=== PATIENT | female | born 1985 | race Hispanic/Latino ===

== ENCOUNTER 2016-12-22 01:26 | Emergency (ER) | payer MEDICAID ==
[2016-12-22] MEDS ORDERED: TYLENOL ONE (01:35)
[2016-12-22] MEDS ORDERED: TYLENOL PO ONE (01:40)
[2016-12-22 02:41] LABS: Basophils % (Auto) 0.4 % (0.0-1.8); Eosinophils % (Auto) 0.9 % (0.0-4.3); Hematocrit 38.1 % (30.3-42.9); Hemoglobin 13.1 gm/dl (10.1-14.3); Mean Corpuscular HGB Conc 34 % (30-34); Mean Corpuscular Hemoglobin 32 pg (28-32); Mean Corpuscular Volume 93 fl (79-97); Platelet Count 180 K/mm3 (140-440); Red Cell Distribution Width 12.5 % (13.2-15.2); White Blood Count 11.1 K/mm3 (4.5-11.0)
[2016-12-22 03:00] LABS: Alanine Aminotransferase 9 units/L (7-56); Albumin 4.4 g/dL (3.9-5); Albumin/Globulin Ratio 1.3 %; Alkaline Phosphatase 41 units/L (35-129); Anion Gap 20 mmol/L; Blood Urea Nitrogen 10 mg/dL (7-17); Calcium 9.5 mg/dL (8.4-10.2); Carbon Dioxide 20 mmol/L (22-30); Chloride 99.5 mmol/L (98-107); Glucose 97 mg/dL (65-100); Lipase 38 units/L (13-60); Potassium 3.7 mmol/L (3.6-5.0); Sodium 136 mmol/L (137-145); Total Protein 7.7 g/dL (6.3-8.2)
[2016-12-22 04:05] LABS: Bilirubin,Urine NEG (Negative); Blood,Urine MOD (Negative); Ketones,Urine NEG (Negative); Leukocyte Esterase,Urine NEG (Negative); Mucus,Urine FEW /HPF; Nitrite,Urine NEG (Negative); Protein,Urine <15 mg/dL mg/dL (Negative); Urobilinogen,Urine < 2.0 mg/dL (<2.0)
--- NOTE | 2016-12-22 04:10 | Ultrasound Report ---
FINAL REPORT PROCEDURE: Ultrasound obstetrical transabdominal and transvaginal TECHNIQUE: Real-time transabdominal and transvaginal sonography of the uterus, placenta, amniotic fluid, adnexa, and fetus was performed with image documentation. Measurements were obtained to determine age/size. M-mode Doppler was used to document heartbeat. CPT 64130 and 71170 HISTORY: vaginal bleed COMPARISON: No prior studies are available for comparison. FINDINGS: ADDITIONAL GESTATION: None. CRL: 61 mm, which corresponds to a gestational age of: 12 weeks, 4 days. Yolk Sac: Normal. Embryonic Cardiac Activity: 156 beats per minute Gestational Sac: There is a subchorionic bleed this measures up to 3 centimeters. Amniotic fluid: Normal. Cervix: Normal. Right Ovary: Normal. Left Ovary: Normal. Estimated delivery date: 07/02/2017 Uterus and adnexa: Normal. IMPRESSION: 1. Single live intrauterine gestation at approximately 12 weeks, 4 days. 2. EDC by US 07/02/2017 3. Moderate-sized subchorionic bleed measuring up to 3 centimeters.
--- NOTE | 2016-12-22 04:10 | Ultrasound Report ---
FINAL REPORT PROCEDURE: US OB TRANSVAGINAL TECHNIQUE: Real-time transabdominal and transvaginal sonography of the uterus, placenta, amniotic fluid, adnexa, and fetus was performed with image documentation. Measurements were obtained to determine age/size. M-mode Doppler was used to document heartbeat. CPT 46223 and 62674 HISTORY: vaginal bleed COMPARISON: No prior studies are available for comparison. FINDINGS: ADDITIONAL GESTATION: None. CRL: 61 mm, which corresponds to a gestational age of: 12 weeks, 4 days. Yolk Sac: Normal. Embryonic Cardiac Activity: 156 beats per minute Gestational Sac: There is a subchorionic bleed this measures up to 3 centimeters. Amniotic fluid: Normal. Cervix: Normal. Right Ovary: Normal. Left Ovary: Normal. Estimated delivery date: 07/02/2017 Uterus and adnexa: Normal. IMPRESSION: 1. Single live intrauterine gestation at approximately 12 weeks, 4 days. 2. EDC by US 07/02/2017 3. Moderate-sized subchorionic bleed measuring up to 3 centimeters.
[2016-12-22 10:18] VITALS: BP 125/80
--- NOTE | 2016-12-22 12:47 | Emergency Department Report ---
ED HPI - General Chief complaint: Vaginal Bleeding Stated complaint: VAGINAL BLEEDING/14WKS PREG Time Seen by Provider: 12/22/16 12:25 Source: patient Mode of arrival: Ambulatory Limitations: No Limitations - History of Present Illness Complaint: vaginal bleeding -: Gradual Location: other Radiation: none Severity: moderate Severity scale (0 -10): 3 Quality: cramping, aching Consistency: intermittent, now resolved Improves with: none Worsens with: none Associated symptoms: vaginal bleeding, weakness. denies: nausea/vomiting, vaginal discharge, abdominal pain, headache, vision changes, malaise, dysparuenia, shortness of breath, syncope Vaginal bleeding: light :: Yes Number of weeks : 14 OB History - Current : no complications OB History - Previous Pregnancies: no complications Pre-grady care: followed by OB, previous ultrasound confi - Related Data : 3 Para: 3 Home Medications Medication Instructions Recorded Confirmed Last Taken Acetaminophen [Tylenol] 1,000 mg PO Q6HR 08/15/13 12/22/16 08/18/13 Vit-Fe Fumar-FA [ 1 tab PO DAILY 08/15/13 12/22/16 08/18/13 Vitamin] Allergies Allergy/AdvReac Type Severity Reaction Status Date / Time No Known Allergies Allergy Verified 05/30/13 16:50 ED Review of Systems ROS: Stated complaint: VAGINAL BLEEDING/14WKS PREG Other details as noted in HPI Comment: All other systems reviewed and negative ED Past Medical Hx - Past Medical History Previous Medical History?: Yes Hx Hypertension: No Hx Congestive Heart Failure: No Hx Diabetes: No Hx Deep Vein Thrombosis: No Hx Renal Disease: No Hx Sickle Cell Disease: No Hx Headaches / Migraines: Yes Hx Seizures: No Hx Asthma: No Hx COPD: No Hx HIV: No - Surgical History Past Surgical History?: Yes Additional Surgical History: Hemorrhoids. Kidney stone lithography. Left femur - Social History Smoking Status: Never Smoker Substance Use Type: None - Medications Home Medications: Home Medications Medication Instructions Recorded Confirmed Last Taken Type Acetaminophen [Tylenol] 1,000 mg PO Q6HR 08/15/13 12/22/16 08/18/13 History Vit-Fe Fumar-FA [ 1 tab PO DAILY 08/15/13 12/22/16 08/18/13 History Vitamin] ED Physical Exam - General Limitations: No Limitations General appearance: alert, in no apparent distress - Head Head exam: Present: atraumatic, normocephalic - Eye Eye exam: Present: normal appearance - ENT ENT exam: Present: mucous membranes moist - Neck Neck exam: Present: normal inspection - Respiratory Respiratory exam: Present: normal lung sounds bilaterally. Absent: respiratory distress - Cardiovascular Cardiovascular Exam: Present: regular rate, normal rhythm. Absent: systolic murmur, diastolic murmur, rubs, gallop - GI/Abdominal GI/Abdominal exam: Present: soft, normal bowel sounds. Absent: distended, tenderness, guarding, rebound - Extremities Exam Extremities exam: Present: normal inspection - Back Exam Back exam: Present: normal inspection - Neurological Exam Neurological exam: Present: alert, oriented X3 - Psychiatric Psychiatric exam: Present: normal affect, normal mood - Skin Skin exam: Present: warm, dry, intact, normal color. Absent: rash ED Course Vital Signs 12/22/16 12/22/16 12/22/16 01:34 10:05 12:11 Temperature 97.8 F 98.0 F Pulse Rate 93 H 82 97 H Respiratory 16 16 22 Rate Blood Pressure 125/80 Blood Pressure 116/73 [Right] O2 Sat by Pulse 100 100 100 Oximetry 12/22/16 12:21 Temperature Pulse Rate Respiratory 22 Rate Blood Pressure Blood Pressure [Right] O2 Sat by Pulse 100 Oximetry ED Medical Decision Making - Lab Data Result diagrams: 12/22/16 02:13 12/22/16 02:13 - Radiology Data Radiology results: report reviewed, image reviewed - Medical Decision Making patient doing well, no bleeding at this time, offered ivf but she is tired and wants to go home, she has appointment with OBGYN tomorrow at 10 am,will dc and follow up. Critical care attestation.: If time is entered above; I have spent that time in minutes in the direct care of this critically ill patient, excluding procedure time. ED Disposition Clinical Impression: Threatened Disposition: DC-01 TO HOME OR SELFCARE Is pt being admited?: No Does the pt Need Aspirin: No Condition: Good Instructions: Threatened Miscarriage (ED) Referrals: LYN CHEW CNM [Primary Care Provider] - 3-5 Days Time of Disposition: 12:47
== END 2016-12-22 12:55 | disposition home or self-care (01) ==
LOC: ED 01:26
DX: O20.0 Threatened abortion (principal); Z3A.14 14 weeks gestation of pregnancy
CPT/HCPCS: 36415; 76801; 76817; 80053; 81001; 83690; 84702; 84703; 85025; 86850; 86900; 86901; 99284

== ENCOUNTER 2017-06-14 13:25 | Outpatient (CLI) | payer MEDICAID ==
[2017-06-14 15:51] VITALS: BP 117/64
== END 2017-06-14 14:31 | disposition home or self-care (01) ==
LOC: TRG 13:25
PROVIDERS: ATTEND Obstetrics & Gynecology
DX: O47.1 False labor at or after 37 completed weeks of gestation (principal); Z3A.38 38 weeks gestation of pregnancy

== ENCOUNTER 2017-06-18 18:53 | Inpatient (IN) | payer MEDICAID ==
--- NOTE | 2017-06-18 19:48 | History and Physical Report ---
History of Present Illness Date of examination: 06/18/17 Date of admission: 06/18/2017 Chief complaint: 31 yo [id number] (first baby of SIDS) admitted in labor at term by nurse check was said to be 3cm dilated, cont q2-3 min. By my exam she has a big floppy multip cervix that is sl more than fingertip but she is having very regular and painful contractions and head is very well applied to cervix. 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 Weight (lb): 137 BMI: 23.6 BP: 128/ 60 mm Hg Ur. Protein: negative Ur. Glucose: negative Chief Complaint/Current Status: pt presents for missed period, c/o being really sick......tmackey Menstrual History Regularity: regular Menses every: 28 days Duration: 5 LMP: 09/20/2016 LMP reliability: unknown LMP character: normal test type: urine test Date: 11/08/2016 BC at conception: other Planned ? no EDC Calculations LMP: 06/27/2017 EDC Confirmation: 06/27/2017 Gestational Age: 7 weeks LMP: 06/27/2017 EDC Confirmation: 06/27/2017 Past History : 4 Term Births: 3 Living Children: 2 Para: 3 Aborta: 1 Elect. Ab: 1 # 1 Delivery date: 05/2006 Weeks Gestation: 41 Delivery type: Delivery location: [facility] [place] Infant Sex: Male weight: 8-0 Name: Teodoro Comments: Passed 07/09/06 SIDS # 2 Delivery date: 07/2007 Weeks Gestation: 38 Delivery type: Anesthesia type: epidural Delivery location: [facility] Sex: Female weight: 7-0 Name: Latrice # 3 Delivery date: 2011 Weeks Gestation: 5 Delivery type: EAB Comments: severe post procedure bleeding # 4 Delivery date: 08/19/2013 Weeks Gestation: 40 Delivery type: Vaginal Anesthesia type: epidural Delivery location: [facility] Infant Sex: female weight: 6.31 Comments: none Past Medical History Social Hx: Patient is single pt takes meds for anxiety and depression is being followed by professional Active Medications: CYPROHEPTADINE 4MG () one po BID for rhinitis PROMETHAZINE HCL 12.5 MG ORAL TABLET (PROMETHAZINE HCL) 1 po qHS prn nausea ZOFRAN ODT 8 MG ORAL TABLET DISINTEGRATING (ONDANSETRON) 1 po q12hrs prn daytime dosing only SUMATRIPTIN () TUMS () TYLENOL () MECLIZINE () Current Allergies: * CLINDAMYCIN (Critical) Past Medical History: Reviewed history from 12/25/2012 and no changes required: Kidney Stone Anxiety Migraines Past Surgical History: Reviewed history from 12/25/2012 and no changes required: positive Hemorrhoidectomy Lithotripsy Past Medical History Abnormal PAP: negative AFTAB Exposure: negative Infertility: negative Uterine Anomaly: negative Uterine Surgery (not C/S): negative Other Gynecologic Problems: negative Social Hx: Patient is single pt takes meds for anxiety and depression is being followed by professional Infection History Hx of STD: chlamydia HIV Risk Eval: low risk Hepatitis B Risk Eval: low risk Personal hx. of genital herpes: no Partner hx. of genital herpes: no Rash, Viral, or Febrile illness since last LMP? no Varicella/Chicken Pox Status: Previous Disease Genetic History Congenital Heart Defect: Mom: no Dad: no Fabián Disease: Mom: no Dad: no Thalassemia Mom: no Dad: no Neural Tube Defect Mom: no Dad: no Down's Syndrome Mom: no Dad: no Jesus-Sachs Mom: no Dad: no Sickle Cell Disease/Trait Mom: no Dad: no Hemophilia Mom: no Dad: no Muscular Dystrophy Mom: no Dad: no Cystic Fibrosis Mom: no Dad: no Bath Chorea Mom: no Dad: no Mental Retardation Mom: no Dad: no Fragile X Mom: no Dad: no Other Genetic/Chromosomal Disorder Mom: no Dad: no Child w/other defect Mom: no Dad: no Enviromental Exposures Xray Exposure: yes Medication, drug, or alcohol use since LMP: yes Chemical/Other Exposure: yes Exposure to Cat Liter: yes Hx of Parvovirus (Fifth Disease): yes Occupational Exposure to Children: none Current Allergies (reviewed today): * CLINDAMYCIN (Critical) Laboratory Results Routine Urinalysis Leukocytes: negative Nitrite: negative Urobilinogen: negative Protein: negative Blood: negative Ketone: negative Bilirubin: negative Glucose: negative Urine HCG: positive Review of Systems General Denies fever, chills, sweats, anorexia, fatigue, weakness, malaise, weight loss and sleep disorder. Complains of nausea and vomiting. Denies headache, swelling of legs, abdominal pain, vaginal discharge, vaginal bleeding and contractions. rx called in Denies vaginal discharge, incontinence, dysuria, hematuria, urinary frequency, amenorrhea, menorrhagia, abnormal vaginal bleeding, pelvic pain, genital sores, decreased libido, painful periods, painful sex, urinary urgency, hot flashes, vaginal dryness, vaginal itching and vaginal odor. CV Denies chest pains, palpitations, syncope, dyspnea on exertion, orthopnea, PND and peripheral edema. Resp Denies cough, dyspnea at rest, excessive sputum, hemoptysis, wheezing and pleurisy. GI Denies nausea, vomiting, diarrhea, constipation, change in bowel habits, abdominal pain, melena, hematochezia, jaundice, gas/bloating, indigestion/ heartburn, dysphagia and odynophagia. Endo Denies cold intolerance, heat intolerance, polydipsia, polyphagia, polyuria and unusual weight change. Breast Denies left breast lump, right breast lump, nipple discharge, bloody discharge from nipple, breast pain, abnormal mammogram and breast enlargement. MS Denies back pain, joint pain, joint swelling, muscle cramps, muscle weakness, stiffness, arthritis, sciatica, restless legs, leg pain at night and leg pain with exertion. Derm Denies rash, itching, dryness and suspicious lesions. Neuro Denies paralysis, paresthesias, headache, seizures, tremors, vertigo, transient blindness, frequent falls, frequent headaches and difficulty walking. Psych Denies depression, anxiety, irritability and mood swings. Eyes Denies blurring, diplopia, irritation, discharge, vision loss, eye pain and photophobia. ENT Denies earache, ear discharge, tinnitus, decreased hearing, nasal congestion, nosebleeds, sore throat and hoarseness. Allergy Denies urticaria, allergic rash, hay fever and recurrent infections. Heme Denies abnormal bruising, bleeding and enlarged lymph nodes. Flowsheet View for Follow-up Visit Estimated weeks of gestation: 7 Weight: 137 Blood pressure: 128 / 60 Urine protein: negative Urine glucose: negative Past History - Obstetrical History : 4 Medications and Allergies Allergies Allergy/AdvReac Type Severity Reaction Status Date / Time No Known Allergies Allergy Verified 05/30/13 16:50 Home Medications Medication Instructions Recorded Confirmed Last Taken Type Acetaminophen [Tylenol] 1,000 mg PO Q6HR 08/15/13 06/14/17 08/18/13 History Vit-Fe Fumar-FA [ 1 tab PO DAILY 08/15/13 06/14/17 08/18/13 History Vitamin] - Vital Signs Vital signs: Vital Signs Temp Pulse Resp BP 99.1 F 96 H 18 132/76 06/18/17 19:08 06/18/17 19:08 06/18/17 19:08 06/18/17 19:08 Temp Pulse Resp BP Pulse Ox 99.1 F 96 H 18 132/76 06/18/17 19:08 06/18/17 19:08 06/18/17 19:08 06/18/17 19:08 Results Result Diagrams: 06/18/17 21:00 All other labs normal. Assessment and Plan - Patient Problems (1) Active labor at term Current Visit: Yes Status: Acute Plan to address problem: anticipate vag del
[2017-06-18] MEDS ORDERED: MINERAL OIL PO PRN (19:53)
[2017-06-18] MEDS ORDERED: BRETHINE SUB-Q PRN (19:53)
[2017-06-18] MEDS ORDERED: SUBLIMAZE IV PRN (19:53)
[2017-06-18] MEDS ORDERED: ePHEDrine SULFATE IV PRN ×2 (19:53→22:36)
[2017-06-18] MEDS ORDERED: XYLOCAINE 2% INFILTRATI ONE (19:53)
[2017-06-18] MEDS ORDERED: BRETHINE IVP PRN (19:53)
[2017-06-18] MEDS ORDERED: STADOL IV PRN (19:53)
[2017-06-18] MEDS ORDERED: PITOCin/NS 20 UNIT/1000ML DRIP 20 UNITS/1,000 ML BAG IV SCH (20:00)
[2017-06-18] MEDS ORDERED: PITOCin/NS 30 UNIT/500ML 30 UNITS/500 ML BAG IV SCH (20:00)
[2017-06-18] MEDS: LACTATED RINGERS 1,000 ML IV SCH ×2 (21:15→22:57)
[2017-06-18] MEDS: PITOCin/NS 30 UNIT/500ML 30 UNITS/500 ML BAG IV SCH ×2 (21:15→23:44)
[2017-06-18 21:32] LABS: Hematocrit 33.7 % (30.3-42.9); Hemoglobin 11.8 gm/dl (10.1-14.3); Mean Corpuscular HGB Conc 35 % (30-34); Mean Corpuscular Hemoglobin 32 pg (28-32); Mean Corpuscular Volume 93 fl (79-97); Platelet Count 154 K/mm3 (140-440); Red Blood Count 3.64 M/mm3 (3.65-5.03); White Blood Count 9.9 K/mm3 (4.5-11.0)
[2017-06-18] MEDS ORDERED: NARCAN 2 MG/2 ML IV PRN (22:36)
--- NOTE | 2017-06-18 22:36 | Anesthesia Consultation ---
Anesthesia Consult and Med Hx Date of service: 06/18/17 - Airway Anesthetic Teeth Evaluation: Good ROM Head & Neck: Adequate Mental/Hyoid Distance: Adequate Mallampati Class: Class II Intubation Access Assessment: Probably Good - Pulmonary Exam CTA: Yes - Cardiac Exam Cardiac Exam: RRR - Pre-Operative Health Status ASA Pre-Surgery Classification: ASA2 Proposed Anesthetic Plan: Epidural - Pulmonary Hx Asthma: No COPD: No Hx Pneumonia: No - Cardiovascular System Hx Hypertension: No - Central Nervous System Hx Seizures: No Hx Psychiatric Problems: No - Endocrine Hx Renal Disease: No Hx End Stage Renal Disease: No Hx Hypothyroidism: No Hx Hyperthyroidism: No - Hematic Hx Anemia: No Hx Sickle Cell Disease: No - Other Systems Hx Alcohol Use: No
[2017-06-18] MEDS: fentaNYL-BUPIV 2 MCG/ML-0.125% 200 MCG/100 ML BAG EPIDURAL SCH (23:00)
[2017-06-19] MEDS: ZOFRAN IV PRN ×2 (02:09→07:55)
--- NOTE | 2017-06-19 02:34 | Event Note ---
Date: 06/19/17 Rechecked, Pit at 14 and now 3-4 cm, -3, 50% AROM clear
--- NOTE | 2017-06-19 05:57 | Progress Note ---
Assessment and Plan L2 labor augmentation after SROM yesterday evening, not in labor. Pitocin @ 26mu SVE minimal chg Internal monitors placed Encouraged position chg frequently. Ctx Q 1-2 will decrease pitocin and allow uterus to rest and reassess in 1-2 hours. Subjective - Subjective Date of service: 06/19/17 (c/o pain with epidural) Principal diagnosis: IUP 38w6d with PROM Patient reports: movement normal Objective - Vital Signs Vital Signs: Vital Signs - 12hr 06/18/17 06/18/17 06/18/17 19:08 20:18 20:22 Temperature 99.1 F 98.1 F Pulse Rate 96 H 91 H 99 H Respiratory 18 18 Rate Blood Pressure 132/76 Blood Pressure 118/74 [Left] O2 Sat by Pulse 98 98 Oximetry 06/18/17 06/18/17 06/18/17 20:23 20:27 20:32 Temperature Pulse Rate 91 H 96 H 101 H Respiratory Rate Blood Pressure 118/74 Blood Pressure [Left] O2 Sat by Pulse 97 97 Oximetry 06/18/17 06/18/17 06/18/17 20:37 20:42 20:47 Temperature Pulse Rate 102 H 105 H 102 H Respiratory Rate Blood Pressure Blood Pressure [Left] O2 Sat by Pulse 96 98 97 Oximetry 06/18/17 06/18/17 06/18/17 20:52 20:57 21:02 Temperature Pulse Rate 100 H 91 H 100 H Respiratory Rate Blood Pressure Blood Pressure [Left] O2 Sat by Pulse 97 97 99 Oximetry 06/18/17 06/18/17 06/18/17 21:07 21:16 21:21 Temperature Pulse Rate 104 H 109 H 91 H Respiratory Rate Blood Pressure Blood Pressure [Left] O2 Sat by Pulse 98 96 99 Oximetry 06/18/17 06/18/17 06/18/17 21:26 21:31 21:36 Temperature Pulse Rate 92 H 91 H 92 H Respiratory Rate Blood Pressure Blood Pressure [Left] O2 Sat by Pulse 98 98 98 Oximetry 06/18/17 06/18/17 06/18/17 21:41 21:46 21:51 Temperature Pulse Rate 99 H 99 H 102 H Respiratory Rate Blood Pressure 135/83 Blood Pressure [Left] O2 Sat by Pulse 98 99 98 Oximetry 06/18/17 06/18/17 06/18/17 21:56 22:14 22:19 Temperature Pulse Rate 103 H 104 H 95 H Respiratory Rate Blood Pressure Blood Pressure [Left] O2 Sat by Pulse 97 98 98 Oximetry 06/18/17 06/18/17 06/18/17 22:24 22:26 22:28 Temperature Pulse Rate 118 H 116 H 103 H Respiratory Rate Blood Pressure 123/77 131/77 120/58 Blood Pressure [Left] O2 Sat by Pulse 100 Oximetry 06/18/17 06/18/17 06/18/17 22:29 22:30 22:32 Temperature Pulse Rate 101 H 105 H 97 H Respiratory Rate Blood Pressure 115/56 100/52 Blood Pressure [Left] O2 Sat by Pulse 98 Oximetry 06/18/17 06/18/17 06/18/17 22:34 22:36 22:38 Temperature Pulse Rate 79 86 107 H Respiratory Rate Blood Pressure 127/72 172/87 144/81 Blood Pressure [Left] O2 Sat by Pulse 97 Oximetry 06/18/17 06/18/17 06/18/17 22:39 22:40 22:42 Temperature Pulse Rate 105 H 102 H 118 H Respiratory Rate Blood Pressure 146/78 120/82 Blood Pressure [Left] O2 Sat by Pulse 100 Oximetry 06/18/17 06/18/17 06/18/17 22:44 22:47 22:49 Temperature Pulse Rate 105 H 103 H 109 H Respiratory Rate Blood Pressure 133/84 Blood Pressure [Left] O2 Sat by Pulse 100 100 Oximetry 06/18/17 06/18/17 06/18/17 22:54 22:59 23:04 Temperature Pulse Rate 113 H 111 H 118 H Respiratory Rate Blood Pressure 141/73 Blood Pressure [Left] O2 Sat by Pulse 100 100 99 Oximetry 06/18/17 06/18/17 06/18/17 23:09 23:14 23:19 Temperature Pulse Rate 96 H 114 H 111 H Respiratory Rate Blood Pressure Blood Pressure [Left] O2 Sat by Pulse 100 100 99 Oximetry 06/18/17 06/18/17 06/18/17 23:24 23:29 23:34 Temperature Pulse Rate 108 H 109 H 118 H Respiratory Rate Blood Pressure Blood Pressure [Left] O2 Sat by Pulse 98 98 99 Oximetry 06/18/17 06/18/17 06/18/17 23:39 23:44 23:46 Temperature Pulse Rate 97 H 101 H 116 H Respiratory Rate Blood Pressure 110/67 Blood Pressure [Left] O2 Sat by Pulse 97 98 Oximetry 06/18/17 06/18/17 06/18/17 23:49 23:54 23:59 Temperature Pulse Rate 121 H 125 H 113 H Respiratory Rate Blood Pressure Blood Pressure [Left] O2 Sat by Pulse 98 99 99 Oximetry 06/19/17 06/19/17 06/19/17 00:04 00:09 00:14 Temperature Pulse Rate 116 H 105 H 103 H Respiratory Rate Blood Pressure Blood Pressure [Left] O2 Sat by Pulse 98 98 99 Oximetry 06/19/17 06/19/17 06/19/17 00:16 00:17 00:19 Temperature Pulse Rate 104 H 101 H 101 H Respiratory Rate Blood Pressure 123/74 126/71 Blood Pressure [Left] O2 Sat by Pulse 99 Oximetry 06/19/17 06/19/17 06/19/17 00:23 00:24 00:29 Temperature 97.9 F Pulse Rate 111 H 121 H Respiratory 18 Rate Blood Pressure Blood Pressure [Left] O2 Sat by Pulse 99 98 Oximetry 06/19/17 06/19/17 06/19/17 00:34 00:39 00:44 Temperature Pulse Rate 114 H 101 H 117 H Respiratory Rate Blood Pressure Blood Pressure [Left] O2 Sat by Pulse 97 97 98 Oximetry 06/19/17 06/19/17 06/19/17 00:46 00:49 00:54 Temperature Pulse Rate 109 H 105 H 119 H Respiratory Rate Blood Pressure 129/72 Blood Pressure [Left] O2 Sat by Pulse 98 98 Oximetry 06/19/17 06/19/17 06/19/17 00:59 01:04 01:09 Temperature Pulse Rate 103 H 115 H 100 H Respiratory Rate Blood Pressure Blood Pressure [Left] O2 Sat by Pulse 98 97 96 Oximetry 06/19/17 06/19/17 06/19/17 01:14 01:16 01:19 Temperature Pulse Rate 104 H 109 H 109 H Respiratory Rate Blood Pressure 129/70 Blood Pressure [Left] O2 Sat by Pulse 99 97 Oximetry 06/19/17 06/19/17 06/19/17 01:24 01:26 01:29 Temperature Pulse Rate 126 H 105 H 103 H Respiratory Rate Blood Pressure Blood Pressure [Left] O2 Sat by Pulse 98 92 97 Oximetry 06/19/17 06/19/17 06/19/17 01:34 01:39 01:44 Temperature Pulse Rate 111 H 106 H 117 H Respiratory Rate Blood Pressure Blood Pressure [Left] O2 Sat by Pulse 99 97 98 Oximetry 06/19/17 06/19/17 06/19/17 01:48 01:49 01:54 Temperature Pulse Rate 97 H 108 H 103 H Respiratory Rate Blood Pressure 125/72 Blood Pressure [Left] O2 Sat by Pulse 98 98 Oximetry 06/19/17 06/19/17 06/19/17 01:59 02:04 02:09 Temperature Pulse Rate 106 H 112 H 114 H Respiratory Rate Blood Pressure Blood Pressure [Left] O2 Sat by Pulse 97 98 98 Oximetry 06/19/17 06/19/17 06/19/17 02:14 02:16 02:19 Temperature Pulse Rate 103 H 109 H 119 H Respiratory Rate Blood Pressure 131/80 Blood Pressure [Left] O2 Sat by Pulse 98 98 Oximetry 06/19/17 06/19/17 06/19/17 02:24 02:29 02:34 Temperature Pulse Rate 109 H 105 H 114 H Respiratory Rate Blood Pressure Blood Pressure [Left] O2 Sat by Pulse 98 98 97 Oximetry 06/19/17 06/19/17 06/19/17 02:39 02:44 02:47 Temperature Pulse Rate 104 H 101 H 94 H Respiratory Rate Blood Pressure 123/77 Blood Pressure [Left] O2 Sat by Pulse 97 96 Oximetry 06/19/17 06/19/17 06/19/17 02:49 02:54 02:59 Temperature Pulse Rate 104 H 112 H 109 H Respiratory Rate Blood Pressure Blood Pressure [Left] O2 Sat by Pulse 98 97 97 Oximetry 06/19/17 06/19/17 06/19/17 03:04 03:09 03:14 Temperature Pulse Rate 99 H 95 H 98 H Respiratory Rate Blood Pressure Blood Pressure [Left] O2 Sat by Pulse 97 97 98 Oximetry 06/19/17 06/19/17 06/19/17 03:16 03:19 03:23 Temperature Pulse Rate 108 H 102 H 104 H Respiratory Rate Blood Pressure 123/74 Blood Pressure [Left] O2 Sat by Pulse 97 91 Oximetry 06/19/17 06/19/17 06/19/17 03:24 03:29 03:34 Temperature Pulse Rate 114 H 100 H 99 H Respiratory Rate Blood Pressure Blood Pressure [Left] O2 Sat by Pulse 96 96 95 Oximetry 06/19/17 06/19/17 06/19/17 03:37 03:39 03:44 Temperature Pulse Rate 102 H 96 H 95 H Respiratory Rate Blood Pressure Blood Pressure [Left] O2 Sat by Pulse 93 92 97 Oximetry 06/19/17 06/19/17 06/19/17 03:46 03:49 03:54 Temperature Pulse Rate 107 H 105 H 103 H Respiratory Rate Blood Pressure 123/75 Blood Pressure [Left] O2 Sat by Pulse 97 100 Oximetry 06/19/17 06/19/17 06/19/17 03:59 04:04 04:09 Temperature Pulse Rate 100 H 95 H 96 H Respiratory Rate Blood Pressure Blood Pressure [Left] O2 Sat by Pulse 97 97 98 Oximetry 06/19/17 06/19/17 06/19/17 04:14 04:17 04:19 Temperature Pulse Rate 107 H 106 H 96 H Respiratory Rate Blood Pressure 123/70 Blood Pressure [Left] O2 Sat by Pulse 99 98 Oximetry 06/19/17 06/19/17 06/19/17 04:24 04:29 04:34 Temperature Pulse Rate 104 H 104 H 98 H Respiratory Rate Blood Pressure Blood Pressure [Left] O2 Sat by Pulse 100 100 100 Oximetry 06/19/17 06/19/17 06/19/17 04:39 04:44 04:46 Temperature Pulse Rate 106 H 99 H 97 H Respiratory Rate Blood Pressure 126/76 Blood Pressure [Left] O2 Sat by Pulse 98 97 Oximetry 06/19/17 06/19/17 06/19/17 04:49 04:54 04:59 Temperature Pulse Rate 104 H 107 H 106 H Respiratory Rate Blood Pressure Blood Pressure [Left] O2 Sat by Pulse 99 98 97 Oximetry 06/19/17 06/19/17 06/19/17 05:04 05:09 05:14 Temperature Pulse Rate 97 H 93 H 102 H Respiratory Rate Blood Pressure Blood Pressure [Left] O2 Sat by Pulse 97 97 99 Oximetry 06/19/17 06/19/17 06/19/17 05:16 05:19 05:24 Temperature Pulse Rate 89 95 H 99 H Respiratory Rate Blood Pressure 119/74 Blood Pressure [Left] O2 Sat by Pulse 98 96 Oximetry 06/19/17 06/19/17 06/19/17 05:29 05:34 05:35 Temperature 98.2 F Pulse Rate 98 H 112 H 94 H Respiratory 18 Rate Blood Pressure Blood Pressure 119/74 [Left] O2 Sat by Pulse 99 100 98 Oximetry 06/19/17 06/19/17 06/19/17 05:39 05:44 05:46 Temperature Pulse Rate 98 H 92 H 97 H Respiratory Rate Blood Pressure 119/70 Blood Pressure [Left] O2 Sat by Pulse 95 97 Oximetry 06/19/17 06/19/17 06/19/17 05:49 05:54 05:59 Temperature Pulse Rate 99 H 111 H 103 H Respiratory Rate Blood Pressure Blood Pressure [Left] O2 Sat by Pulse 99 100 100 Oximetry - Exam Breasts: deferred Cardiovascular: Regular rate Lungs: Normal air movement Abdomen: Present: normal appearance, soft. Absent: distention, tenderness Vulva: both: normal Uterus: Present: normal FHR: auscultation normal, category 1 Uterine Contraction Monitor Mode: Internal Cervical Dilatation: 4 (ISE/IUPC placed) Cervical Effacement Percentage: 50 station: -2 Uterine Contraction Pattern: Regular Uterine Tone Measurement Phase: Resting Uterine Contraction Intensity: Moderate Extremities: normal Deep Tendon Reflex Grade: Normal +2 - Labs Labs: Abnormal Labs 06/18/17 21:00 RBC 3.64 L MCHC 35 H RDW 13.0 L Laboratory Results - last 24 hr 06/18/17 06/19/17 21:00 00:01 WBC 9.9 RBC 3.64 L Hgb 11.8 Hct 33.7 MCV 93 MCH 32 MCHC 35 H RDW 13.0 L Plt Count 154 Blood Type B NEGATIVE Antibody Screen Positive Antibody Identification Anti-D (Passively Aquired)
[2017-06-19] MEDS: PITOCin/NS 30 UNIT/500ML 30 UNITS/500 ML BAG IV SCH (06:23)
[2017-06-19] MEDS: LACTATED RINGERS 1,000 ML IV SCH (06:24)
[2017-06-19] MEDS: fentaNYL-BUPIV 2 MCG/ML-0.125% 200 MCG/100 ML BAG EPIDURAL SCH ×2 (06:46→11:21)
--- NOTE | 2017-06-19 07:44 | Progress Note ---
Assessment and Plan Pt repositioned freq SVE 6-7,90,-1 C/O nausea Zofran to be given Continue POC Anticipate delivery Subjective - Subjective Date of service: 06/19/17 (c/o nausea) Principal diagnosis: IUP 38w6d with PROM Patient reports: movement normal Objective - Vital Signs Vital Signs: Vital Signs - 12hr 06/18/17 06/18/17 06/18/17 20:18 20:22 20:23 Temperature 98.1 F Pulse Rate 91 H 99 H 91 H Respiratory 18 Rate Blood Pressure 118/74 Blood Pressure 118/74 [Left] O2 Sat by Pulse 98 98 Oximetry 06/18/17 06/18/17 06/18/17 20:27 20:32 20:37 Temperature Pulse Rate 96 H 101 H 102 H Respiratory Rate Blood Pressure Blood Pressure [Left] O2 Sat by Pulse 97 97 96 Oximetry 06/18/17 06/18/17 06/18/17 20:42 20:47 20:52 Temperature Pulse Rate 105 H 102 H 100 H Respiratory Rate Blood Pressure Blood Pressure [Left] O2 Sat by Pulse 98 97 97 Oximetry 06/18/17 06/18/17 06/18/17 20:57 21:02 21:07 Temperature Pulse Rate 91 H 100 H 104 H Respiratory Rate Blood Pressure Blood Pressure [Left] O2 Sat by Pulse 97 99 98 Oximetry 06/18/17 06/18/17 06/18/17 21:16 21:21 21:26 Temperature Pulse Rate 109 H 91 H 92 H Respiratory Rate Blood Pressure Blood Pressure [Left] O2 Sat by Pulse 96 99 98 Oximetry 06/18/17 06/18/17 06/18/17 21:31 21:36 21:41 Temperature Pulse Rate 91 H 92 H 99 H Respiratory Rate Blood Pressure Blood Pressure [Left] O2 Sat by Pulse 98 98 98 Oximetry 06/18/17 06/18/17 06/18/17 21:46 21:51 21:56 Temperature Pulse Rate 99 H 102 H 103 H Respiratory Rate Blood Pressure 135/83 Blood Pressure [Left] O2 Sat by Pulse 99 98 97 Oximetry 06/18/17 06/18/17 06/18/17 22:14 22:19 22:24 Temperature Pulse Rate 104 H 95 H 118 H Respiratory Rate Blood Pressure 123/77 Blood Pressure [Left] O2 Sat by Pulse 98 98 100 Oximetry 06/18/17 06/18/17 06/18/17 22:26 22:28 22:29 Temperature Pulse Rate 116 H 103 H 101 H Respiratory Rate Blood Pressure 131/77 120/58 Blood Pressure [Left] O2 Sat by Pulse 98 Oximetry 06/18/17 06/18/17 06/18/17 22:30 22:32 22:34 Temperature Pulse Rate 105 H 97 H 79 Respiratory Rate Blood Pressure 115/56 100/52 127/72 Blood Pressure [Left] O2 Sat by Pulse 97 Oximetry 06/18/17 06/18/17 06/18/17 22:36 22:38 22:39 Temperature Pulse Rate 86 107 H 105 H Respiratory Rate Blood Pressure 172/87 144/81 Blood Pressure [Left] O2 Sat by Pulse 100 Oximetry 06/18/17 06/18/17 06/18/17 22:40 22:42 22:44 Temperature Pulse Rate 102 H 118 H 105 H Respiratory Rate Blood Pressure 146/78 120/82 Blood Pressure [Left] O2 Sat by Pulse 100 Oximetry 06/18/17 06/18/17 06/18/17 22:47 22:49 22:54 Temperature Pulse Rate 103 H 109 H 113 H Respiratory Rate Blood Pressure 133/84 Blood Pressure [Left] O2 Sat by Pulse 100 100 Oximetry 06/18/17 06/18/17 06/18/17 22:59 23:04 23:09 Temperature Pulse Rate 111 H 118 H 96 H Respiratory Rate Blood Pressure 141/73 Blood Pressure [Left] O2 Sat by Pulse 100 99 100 Oximetry 06/18/17 06/18/17 06/18/17 23:14 23:19 23:24 Temperature Pulse Rate 114 H 111 H 108 H Respiratory Rate Blood Pressure Blood Pressure [Left] O2 Sat by Pulse 100 99 98 Oximetry 06/18/17 06/18/17 06/18/17 23:29 23:34 23:39 Temperature Pulse Rate 109 H 118 H 97 H Respiratory Rate Blood Pressure Blood Pressure [Left] O2 Sat by Pulse 98 99 97 Oximetry 06/18/17 06/18/17 06/18/17 23:44 23:46 23:49 Temperature Pulse Rate 101 H 116 H 121 H Respiratory Rate Blood Pressure 110/67 Blood Pressure [Left] O2 Sat by Pulse 98 98 Oximetry 06/18/17 06/18/17 06/19/17 23:54 23:59 00:04 Temperature Pulse Rate 125 H 113 H 116 H Respiratory Rate Blood Pressure Blood Pressure [Left] O2 Sat by Pulse 99 99 98 Oximetry 06/19/17 06/19/17 06/19/17 00:09 00:14 00:16 Temperature Pulse Rate 105 H 103 H 104 H Respiratory Rate Blood Pressure 123/74 Blood Pressure [Left] O2 Sat by Pulse 98 99 Oximetry 06/19/17 06/19/17 06/19/17 00:17 00:19 00:23 Temperature 97.9 F Pulse Rate 101 H 101 H Respiratory 18 Rate Blood Pressure 126/71 Blood Pressure [Left] O2 Sat by Pulse 99 Oximetry 06/19/17 06/19/17 06/19/17 00:24 00:29 00:34 Temperature Pulse Rate 111 H 121 H 114 H Respiratory Rate Blood Pressure Blood Pressure [Left] O2 Sat by Pulse 99 98 97 Oximetry 06/19/17 06/19/17 06/19/17 00:39 00:44 00:46 Temperature Pulse Rate 101 H 117 H 109 H Respiratory Rate Blood Pressure 129/72 Blood Pressure [Left] O2 Sat by Pulse 97 98 Oximetry 06/19/17 06/19/17 06/19/17 00:49 00:54 00:59 Temperature Pulse Rate 105 H 119 H 103 H Respiratory Rate Blood Pressure Blood Pressure [Left] O2 Sat by Pulse 98 98 98 Oximetry 06/19/17 06/19/17 06/19/17 01:04 01:09 01:14 Temperature Pulse Rate 115 H 100 H 104 H Respiratory Rate Blood Pressure Blood Pressure [Left] O2 Sat by Pulse 97 96 99 Oximetry 06/19/17 06/19/17 06/19/17 01:16 01:19 01:24 Temperature Pulse Rate 109 H 109 H 126 H Respiratory Rate Blood Pressure 129/70 Blood Pressure [Left] O2 Sat by Pulse 97 98 Oximetry 06/19/17 06/19/17 06/19/17 01:26 01:29 01:34 Temperature Pulse Rate 105 H 103 H 111 H Respiratory Rate Blood Pressure Blood Pressure [Left] O2 Sat by Pulse 92 97 99 Oximetry 06/19/17 06/19/17 06/19/17 01:39 01:44 01:48 Temperature Pulse Rate 106 H 117 H 97 H Respiratory Rate Blood Pressure 125/72 Blood Pressure [Left] O2 Sat by Pulse 97 98 Oximetry 06/19/17 06/19/17 06/19/17 01:49 01:54 01:59 Temperature Pulse Rate 108 H 103 H 106 H Respiratory Rate Blood Pressure Blood Pressure [Left] O2 Sat by Pulse 98 98 97 Oximetry 06/19/17 06/19/17 06/19/17 02:04 02:09 02:14 Temperature Pulse Rate 112 H 114 H 103 H Respiratory Rate Blood Pressure Blood Pressure [Left] O2 Sat by Pulse 98 98 98 Oximetry 06/19/17 06/19/17 06/19/17 02:16 02:19 02:24 Temperature Pulse Rate 109 H 119 H 109 H Respiratory Rate Blood Pressure 131/80 Blood Pressure [Left] O2 Sat by Pulse 98 98 Oximetry 06/19/17 06/19/17 06/19/17 02:29 02:34 02:39 Temperature Pulse Rate 105 H 114 H 104 H Respiratory Rate Blood Pressure Blood Pressure [Left] O2 Sat by Pulse 98 97 97 Oximetry 06/19/17 06/19/17 06/19/17 02:44 02:47 02:49 Temperature Pulse Rate 101 H 94 H 104 H Respiratory Rate Blood Pressure 123/77 Blood Pressure [Left] O2 Sat by Pulse 96 98 Oximetry 06/19/17 06/19/17 06/19/17 02:54 02:59 03:04 Temperature Pulse Rate 112 H 109 H 99 H Respiratory Rate Blood Pressure Blood Pressure [Left] O2 Sat by Pulse 97 97 97 Oximetry 06/19/17 06/19/17 06/19/17 03:09 03:14 03:16 Temperature Pulse Rate 95 H 98 H 108 H Respiratory Rate Blood Pressure 123/74 Blood Pressure [Left] O2 Sat by Pulse 97 98 Oximetry 06/19/17 06/19/17 06/19/17 03:19 03:23 03:24 Temperature Pulse Rate 102 H 104 H 114 H Respiratory Rate Blood Pressure Blood Pressure [Left] O2 Sat by Pulse 97 91 96 Oximetry 06/19/17 06/19/17 06/19/17 03:29 03:34 03:37 Temperature Pulse Rate 100 H 99 H 102 H Respiratory Rate Blood Pressure Blood Pressure [Left] O2 Sat by Pulse 96 95 93 Oximetry 06/19/17 06/19/17 06/19/17 03:39 03:44 03:46 Temperature Pulse Rate 96 H 95 H 107 H Respiratory Rate Blood Pressure 123/75 Blood Pressure [Left] O2 Sat by Pulse 92 97 Oximetry 06/19/17 06/19/17 06/19/17 03:49 03:54 03:59 Temperature Pulse Rate 105 H 103 H 100 H Respiratory Rate Blood Pressure Blood Pressure [Left] O2 Sat by Pulse 97 100 97 Oximetry 06/19/17 06/19/17 06/19/17 04:04 04:09 04:14 Temperature Pulse Rate 95 H 96 H 107 H Respiratory Rate Blood Pressure Blood Pressure [Left] O2 Sat by Pulse 97 98 99 Oximetry 06/19/17 06/19/17 06/19/17 04:17 04:19 04:24 Temperature Pulse Rate 106 H 96 H 104 H Respiratory Rate Blood Pressure 123/70 Blood Pressure [Left] O2 Sat by Pulse 98 100 Oximetry 06/19/17 06/19/17 06/19/17 04:29 04:34 04:39 Temperature Pulse Rate 104 H 98 H 106 H Respiratory Rate Blood Pressure Blood Pressure [Left] O2 Sat by Pulse 100 100 98 Oximetry 06/19/17 06/19/17 06/19/17 04:44 04:46 04:49 Temperature Pulse Rate 99 H 97 H 104 H Respiratory Rate Blood Pressure 126/76 Blood Pressure [Left] O2 Sat by Pulse 97 99 Oximetry 06/19/17 06/19/17 06/19/17 04:54 04:59 05:04 Temperature Pulse Rate 107 H 106 H 97 H Respiratory Rate Blood Pressure Blood Pressure [Left] O2 Sat by Pulse 98 97 97 Oximetry 06/19/17 06/19/17 06/19/17 05:09 05:14 05:16 Temperature Pulse Rate 93 H 102 H 89 Respiratory Rate Blood Pressure 119/74 Blood Pressure [Left] O2 Sat by Pulse 97 99 Oximetry 06/19/17 06/19/17 06/19/17 05:19 05:24 05:29 Temperature Pulse Rate 95 H 99 H 98 H Respiratory Rate Blood Pressure Blood Pressure [Left] O2 Sat by Pulse 98 96 99 Oximetry 06/19/17 06/19/17 06/19/17 05:34 05:35 05:39 Temperature 98.2 F Pulse Rate 112 H 94 H 98 H Respiratory 18 Rate Blood Pressure Blood Pressure 119/74 [Left] O2 Sat by Pulse 100 98 95 Oximetry 12/05/2606/19/17 06/19/17 05:44 05:46 05:49 Temperature Pulse Rate 92 H 97 H 99 H Respiratory Rate Blood Pressure 119/70 Blood Pressure [Left] O2 Sat by Pulse 97 99 Oximetry 06/19/17 06/19/17 06/19/17 05:54 05:59 06:04 Temperature Pulse Rate 111 H 103 H 99 H Respiratory Rate Blood Pressure Blood Pressure [Left] O2 Sat by Pulse 100 100 99 Oximetry 06/19/17 06/19/17 06/19/17 06:09 06:14 06:16 Temperature Pulse Rate 94 H 92 H 101 H Respiratory Rate Blood Pressure 130/80 Blood Pressure [Left] O2 Sat by Pulse 98 99 Oximetry 06/19/17 06/19/17 06/19/17 06:20 06:25 06:30 Temperature Pulse Rate 96 H 95 H 104 H Respiratory Rate Blood Pressure Blood Pressure [Left] O2 Sat by Pulse 100 99 98 Oximetry 06/19/17 06/19/17 06/19/17 06:35 06:40 06:45 Temperature Pulse Rate 93 H 106 H 105 H Respiratory Rate Blood Pressure Blood Pressure [Left] O2 Sat by Pulse 99 99 100 Oximetry 06/19/17 06/19/17 06/19/17 06:46 06:50 06:55 Temperature Pulse Rate 103 H 128 H 109 H Respiratory Rate Blood Pressure 128/77 Blood Pressure [Left] O2 Sat by Pulse 99 99 Oximetry 06/19/17 06/19/17 06/19/17 07:00 07:05 07:12 Temperature 98.1 F Pulse Rate 107 H 111 H 101 H Respiratory 18 Rate Blood Pressure Blood Pressure [Left] O2 Sat by Pulse 98 100 100 Oximetry 06/19/17 06/19/17 06/19/17 07:17 07:22 07:27 Temperature Pulse Rate 131 H 97 H 98 H Respiratory Rate Blood Pressure 126/83 Blood Pressure [Left] O2 Sat by Pulse 99 99 99 Oximetry 06/19/17 06/19/17 06/19/17 07:32 07:37 07:42 Temperature Pulse Rate 100 H 97 H 84 Respiratory Rate Blood Pressure Blood Pressure [Left] O2 Sat by Pulse 98 98 98 Oximetry - Exam Breasts: deferred, normal Cardiovascular: Regular rate Lungs: Normal air movement Abdomen: Present: normal appearance, soft. Absent: distention, tenderness Uterus: Present: normal FHR: auscultation normal, category 1 Uterine Contraction Monitor Mode: Internal Cervical Dilatation: 6.5 Cervical Effacement Percentage: 90 station: -1 Uterine Contraction Pattern: Regular Uterine Contraction Intensity: Moderate Extremities: normal Deep Tendon Reflex Grade: Normal +2 - Labs Labs: Abnormal Labs 06/18/17 21:00 RBC 3.64 L MCHC 35 H RDW 13.0 L Laboratory Results - last 24 hr 06/18/17 06/19/17 21:00 00:01 WBC 9.9 RBC 3.64 L Hgb 11.8 Hct 33.7 MCV 93 MCH 32 MCHC 35 H RDW 13.0 L Plt Count 154 Blood Type B NEGATIVE Antibody Screen Positive Antibody Identification Anti-D (Passively Aquired)
[2017-06-19] MEDS ORDERED: METHERGINE IM ONE (09:44)
[2017-06-19] MEDS ORDERED: CYTOTEC ONE (09:48)
[2017-06-19] MEDS ORDERED: CYTOTEC PR ONE (10:11)
[2017-06-19] MEDS ORDERED: METHERGINE IM NR (10:12)
[2017-06-19] MEDS ORDERED: NORCO 5/325 PO PRN (12:14)
[2017-06-19] MEDS ORDERED: BENADRYL PO PRN (12:14)
[2017-06-19] MEDS ORDERED: TYLENOL PO PRN (12:14)
[2017-06-19] MEDS ORDERED: PERCOCET 5/325 PO PRN (12:14)
[2017-06-19] MEDS ORDERED: TUCKS PAD TP PRN (12:14)
[2017-06-19] MEDS ORDERED: MILK OF MAGNESIA PO PRN (12:14)
[2017-06-19] MEDS ORDERED: PHENERGAN PO PRN (12:14)
[2017-06-19] MEDS ORDERED: DULCOLAX PR PRN (12:14)
[2017-06-19] MEDS: MOTRIN PO SCH ×2 (12:44→18:51)
[2017-06-19] MEDS ORDERED: SODIUM CHLORIDE FLUSH SYRINGE 10 ML IV NR (13:00)
[2017-06-19] MEDS: METHERGINE PO SCH ×2 (13:08→21:48)
[2017-06-19 14:39] LABS: Hematocrit 30.6 % (30.3-42.9); Hemoglobin 10.6 gm/dl (10.1-14.3)
--- NOTE | 2017-06-19 15:36 | Procedure Note ---
OB Delivery Note - Delivery Date of Delivery: 06/19/17 (delay entry Del @ 0936) [employer]: LYN CHEW Estimated blood loss: other (800cc) - Vaginal Delivery presentation: vertex Delivery position: OA (compound with hand) Intrapartum events: PROM->1hr before delivery Delivery induction: none Delivery augmentation: pitocin Delivery monitor: internal FHT, internal uterine Route of delivery: Delivery placenta: spontaneous Delivery cord: 3 umbilical vessels Episiotomy: none Delivery laceration: 2nd degree Delivery repair: vicryl Anesthesia: epidural Delivery comments: Called to LDR for imminent delivery live born female over intact perineum Placed skin to skin on mom's abdomen Cord blood obtained Placenta and membrane delivered complete and intact, 3 vessel cord. Lower uterine segment boggy methgine IM given 2nd degree laceration repaired in usual fashion over epidural. Uterus lower segment remains boggy manual removal several clots, cytotec 800mcg DC given Thompson replaced until transport to M./B unit 8/9, EBL 800, Wgt 6-9. Mom and baby remain LDR stable FF @ umb Lochia mod upon completion of repair. - A at 1 minute: 8 at 5 minutes: 9 Gender: Female (wgt 6-9)
[2017-06-20] MEDS: MOTRIN PO SCH ×2 (00:24→06:07)
[2017-06-20] MEDS: METHERGINE PO SCH (05:23)
[2017-06-20 05:38] LABS: Hematocrit 27.7 % (30.3-42.9); Hemoglobin 9.6 gm/dl (10.1-14.3); Mean Corpuscular HGB Conc 35 % (30-34); Mean Corpuscular Hemoglobin 32 pg (28-32); Mean Corpuscular Volume 93 fl (79-97); Platelet Count 139 K/mm3 (140-440); Red Blood Count 2.99 M/mm3 (3.65-5.03); Red Cell Distribution Width 12.9 % (13.2-15.2); White Blood Count 11.3 K/mm3 (4.5-11.0)
[2017-06-20] MEDS ORDERED: M-M-R II VACCINE SUB-Q ONE (06:00)
[2017-06-20] MEDS ORDERED: BOOSTRIX IM ONE (06:00)
--- NOTE | 2017-06-20 08:02 | Progress Note ---
Assessment and Plan patient doing well, no complaints. Lochia scant, VSSAF, H&H 9.6/27.7, no s/s of anemia.plan for d/c home today w/ routine f/u in office. - Patient Problems (1) (normal spontaneous vaginal delivery) Current Visit: Yes Status: Acute Subjective - Subjective Date of service: 06/20/17 Principal diagnosis: day # 1 s/p Patient reports: appetite normal, voiding normally, pain well controlled, ambulating normally, no dizzy ambulation, no nauseated [place]: doing well, nursing well Objective - Vital Signs Latest vital signs: Vital Signs Temp Pulse Resp BP BP Pulse Ox 06/20/17 00:57 97.9 F 79 18 99/56 06/19/17 21:24 98 F 93 H 18 117/78 06/19/17 16:33 97.8 F 77 18 114/73 95 06/19/17 11:50 97.8 F 100 H 18 127/85 99 06/19/17 11:07 107 H 135/78 06/19/17 11:02 101 H 100 06/19/17 10:57 93 H 100 06/19/17 10:52 96 H 153/78 100 06/19/17 10:47 97 H 100 06/19/17 10:42 101 H 100 06/19/17 10:37 102 H 138/80 100 06/19/17 10:32 99 H 100 06/19/17 10:27 101 H 100 06/19/17 10:22 105 H 132/75 100 06/19/17 10:17 97.9 F 104 H 18 100 06/19/17 10:12 111 H 99 06/19/17 10:07 108 H 121/65 99 06/19/17 10:02 108 H 98 06/19/17 09:57 103 H 98 06/19/17 09:53 109 H 126/69 06/19/17 09:52 115 H 97 06/19/17 09:47 100 H 97 06/19/17 09:46 103 H 136/85 06/19/17 09:42 114 H 97 06/19/17 09:37 118 H 96 06/19/17 09:32 104 H 100 06/19/17 09:27 108 H 100 06/19/17 09:22 107 H 100 06/19/17 09:17 107 H 100 06/19/17 09:16 101 H 131/74 06/19/17 09:13 98.0 F 20 06/19/17 09:12 103 H 100 06/19/17 09:07 103 H 99 06/19/17 09:02 108 H 100 06/19/17 08:57 101 H 99 06/19/17 08:52 104 H 99 06/19/17 08:47 103 H 98 06/19/17 08:46 113 H 144/65 06/19/17 08:42 101 H 100 06/19/17 08:37 106 H 98 06/19/17 08:32 101 H 100 06/19/17 08:27 85 99 06/19/17 08:22 88 99 06/19/17 08:17 95 H 99 06/19/17 08:16 100 H 128/77 06/19/17 08:12 101 H 99 06/19/17 08:07 102 H 100 Intake and Output 06/19/17 06/20/17 06/20/17 23:59 07:59 15:59 Intake Total 360 580 Balance 360 580 Intake: Oral 360 Intake, Free Water 580 Other: Total, Intake Amount 360 # Voids Void 1 2 # Bowel Movements 1 - Exam Breasts: Present: normal, Cardiovascular: Present: Regular rate Lungs: Present: Clear to auscultation, Normal air movement Abdomen: Present: normal appearance, soft Vulva: both: laceration/episiotomy Uterus: Present: normal, firm, fundal height at umbilicus Extremities: Present: normal Incision: Present: normal, dry, intact - Labs Labs: Abnormal lab results 06/20/17 Range/Units 05:00 WBC 11.3 H (4.5-11.0) K/mm3 RBC 2.99 L (3.65-5.03) M/mm3 Hgb 9.6 L (10.1-14.3) gm/dl Hct 27.7 L (30.3-42.9) % MCHC 35 H (30-34) % RDW 12.9 L (13.2-15.2) % Plt Count 139 L (140-440) K/mm3
--- NOTE | 2017-06-20 08:04 | Discharge Summary ---
Providers - Providers Date of Admission: 06/18/17 20:04 Date of discharge: 06/20/17 Attending physician: ARIANE GALEANA Primary care physician: JB VANG Hospitalization Reason for admission: active labor Delivery: Episiotomy: none Laceration: 2nd degree Incision: normal, dry, intact Other procedures: none complications: none Discharge diagnosis: IUP at term delivered baby: female Hospital course: uncomplicated vaginal Condition at discharge: Good Disposition: DC-01 TO HOME OR SELFCARE - Discharge Diagnoses (1) (normal spontaneous vaginal delivery) Status: Acute Plan - Discharge Medications Prescriptions: Ibuprofen [Motrin 800 MG tab] 800 mg PO Q8HR PRN #30 tablet PRN Reason: Pain - Provider Discharge Summary Activity: routine, no sex for 6 weeks, no heavy lifting 4 weeks, no strenuous exercise Diet: routine Instructions: routine Additional instructions: [] Smoking cessation referral if applicable(refer to patient education folder for contact #) [] Refer to [facility] Booklet Call your doctor immediately for: * Fever > 100.5 * Heavy vaginal bleeding ( >1 pad per hour) * Severe persistent headache * Shortness of breath * Reddened, hot, painful area to leg or breast * Drainage or odor from incision. * Keep incision clean and dry at all times and follow doctor's instructions regarding bathing/showering - Follow up plan Follow up: JB VANG MD [Primary Care Provider] - 07/25/17 (Congratulations! Please call [phone] to schedule your appointment in 4 weeks. Call for any questions or concerns. )
[2017-06-20 09:11] VITALS: BP 124/75
== END 2017-06-20 11:00 | disposition home or self-care (01) | DRG 775 ==
LOC: TRG 18:53 → LD 20:04 → OB 06-19 11:31
PROVIDERS: ADMIT Obstetrics & Gynecology; ATTEND Obstetrics & Gynecology
PROC: 10E0XZZ Delivery of Products of Conception, External Approach (ICD-10-PCS; principal; 2017-06-19)
PROC: 0KQM0ZZ Repair Perineum Muscle, Open Approach (ICD-10-PCS; 2017-06-19)
PROC: 10907ZC Drainage of Amniotic Fluid, Therapeutic from Products of Conception, Via Natural or Artificial Opening (ICD-10-PCS; 2017-06-19)
PROC: 3E0R3BZ Introduction of Anesthetic Agent into Spinal Canal, Percutaneous Approach (ICD-10-PCS; 2017-06-19)
PROC: 00HU33Z Insertion of Infusion Device into Spinal Canal, Percutaneous Approach (ICD-10-PCS; 2017-06-19)
PROC: 3E0234Z Introduction of Serum, Toxoid and Vaccine into Muscle, Percutaneous Approach (ICD-10-PCS; 2017-06-20)
DX: O42.02 Full-term premature rupture of membranes, onset of labor within 24 hours of rupture (principal); O70.1 Second degree perineal laceration during delivery; O99.344 Other mental disorders complicating childbirth; F41.8 Other specified anxiety disorders; O99.354 Diseases of the nervous system complicating childbirth; G43.909 Migraine, unspecified, not intractable, without status migrainosus; O99.314 Alcohol use complicating childbirth; O99.324 Drug use complicating childbirth; F19.90 Other psychoactive substance use, unspecified, uncomplicated; Z37.0 Single live birth; Z3A.39 39 weeks gestation of pregnancy; Z23 Encounter for immunization; Z88.1 Allergy status to other antibiotic agents; Z87.442 Personal history of urinary calculi; Z72.89 Other problems related to lifestyle
CPT/HCPCS: 36415; 85014; 85018; 85027; 86592; 86850; 86870; 86900; 86901; 90471; 90715; 99211; G0463; J2210; J2405; J2590; J7120